=== PATIENT | male | born 1945 | race Caucasian/White ===

== ENCOUNTER → 2017-07-17 | Outpatient (CLI) | payer OTHER, MEDICARE ==
[~2017-07-17] VITALS: Ht 167.6 cm; Wt 75.4 kg
[~2017-07-17] MED LIST: ANTI-DIARRHEA2 MG PO; ASPIR 8181 M1 PO; ASPIRIN81 M2 PO; ATORVASTATIN CA40 MG PO; AVAPRO150 MG PO; CLOPIDOGREL75 MG PO; FLOMAX0.4 MG PO; IRBESARTAN300 MG PO; LOMOTIL TABLET1 EACH PO; MAGNESIUM PO; MELOXICAM7.5 MG PO; MOBIC7.5 MG PO; OMEPRAZOLE40 M1 PO; OXYCODONE-APAP1 EACH PO; PERCOCET 5/31 TABLET PO; PROVENTIL,2.5 MG/0.5 AEROSOL; TAMSULOSIN HCL0.4 MG PO
== END | disposition home or self-care (01) ==
LOC: AMB 14:00
PROC: 0D5N8ZZ Destruction of Sigmoid Colon, Via Natural or Artificial Opening Endoscopic (ICD-10-PCS; principal; 2017-07-17)
DX: K62.7 Radiation proctitis (principal); K57.30 Diverticulosis of large intestine without perforation or abscess without bleeding; R15.0 Incomplete defecation; K64.8 Other hemorrhoids; Z85.46 Personal history of malignant neoplasm of prostate; I10 Essential (primary) hypertension; I25.2 Old myocardial infarction; K21.9 Gastro-esophageal reflux disease without esophagitis; E78.5 Hyperlipidemia, unspecified; M19.90 Unspecified osteoarthritis, unspecified site; Z87.891 Personal history of nicotine dependence; Z79.82 Long term (current) use of aspirin; Z96.653 Presence of artificial knee joint, bilateral; Z82.49 Family history of ischemic heart disease and other diseases of the circulatory system; Z88.0 Allergy status to penicillin; Z88.1 Allergy status to other antibiotic agents
CPT/HCPCS: 93005